=== PATIENT | male | born 1985 | race Caucasian/White ===

== ENCOUNTER 2018-05-17 22:25 | Emergency (ER) | payer OTHER, SELFPAY ==
[2018-05-17 22:26] VITALS: BP 156/112; PULSE 79; RESP 16; TEMP 35.5; O2SAT 98; BMI 36.6
--- NOTE | 2018-05-17 22:33 | ED.RN ---
CALLED [facility] PER MANDATORY REPORTING REQUIREMENTS
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
[2018-05-17] MEDS: Ondansetron 4 MG/2 ML Vial IV (22:51)
[2018-05-17] MEDS: HYDROmorphone 1 MG/ML Syringe IV ×2 (22:51→23:03)
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
[2018-05-18] MEDS: Diphth,Pertuss(Acell),Tet Vac 0.5 ML Vial IM (00:07)
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
--- NOTE | 2018-05-18 00:22 | ED.RN ---
eye shield applied to the eye at this time per Dr. Camargo
[2018-05-18] MEDS: Cefazolin 1 GM/50 ML BAG IV (01:05)
[2018-05-18] MEDS: HYDROmorphone 1 MG/ML Syringe IV (01:05)
[2018-05-18 01:09] VITALS: BP 128/89; PULSE 60; RESP 14; O2SAT 95
[2018-05-18 01:43] VITALS: BP 128/89; PULSE 60; RESP 14; O2SAT 95
== END 2018-05-18 01:45 | disposition short-term general hospital (02) ==
PROVIDERS: Emergency Provider Emergency Medicine; Family Provider Family Medicine; PCP Family Medicine
DX: S05.32XA Ocular laceration without prolapse or loss of intraocular tissue, left eye, initial encounter (principal); S02.82XA Fracture of other specified skull and facial bones, left side, initial encounter for closed fracture; S01.112A Laceration without foreign body of left eyelid and periocular area, initial encounter; W39.XXXA Discharge of firework, initial encounter; Y93.9 Activity, unspecified; Y92.89 Other specified places as the place of occurrence of the external cause; Y99.9 Unspecified external cause status; Z23 Encounter for immunization
CPT/HCPCS: 70486; 90715; 99285; J7030; A4216; J2405